=== PATIENT | male | born 1980 | race Caucasian/White ===

== ENCOUNTER → 2018-01-03 | Outpatient (CLI) | payer BC, OTHER ==
[2018-01-03 14:55] LABS: HEMATOCRIT 49.8 % (42.0-52.0); HEMOGLOBIN 17.3 g/dl (14.0-18.0); MEAN CORPUSCULAR HEMOGLOBIN 30.8 pg (27.0-33.0); MEAN CORPUSCULAR HGB CONC 34.7 g/dl (32.0-36.5); MEAN CORPUSCULAR VOLUME 88.8 fl (80.0-96.0); PLATELET COUNT, AUTOMATED 206 10^3/uL (150-450); RED BLOOD COUNT 5.61 10^6/uL (4.30-6.10); RED CELL DISTRIBUTION WIDTH 11.9 % (11.5-14.5); WHITE BLOOD COUNT 4.5 10^3/uL (4.0-10.0)
[2018-01-03 15:26] LABS: TOTAL 25(OH) VITAMIN D 26.6 NG/ML (30.0-100.0)
[2018-01-03 15:30] LABS: ALBUMIN 4.7 GM/DL (3.2-5.2); ALBUMIN/GLOBULIN RATIO 1.31 (1.00-1.93); ALKALINE PHOSPHATASE 137 U/L (45-117); ALT/SGPT 38 U/L (12-78); ANION GAP 5 MEQ/L (8-16); AST/SGOT 32 U/L (7-37); BILIRUBIN,TOTAL 0.8 MG/DL (0.2-1.0); BLOOD UREA NITROGEN 22 MG/DL (7-18); CALCIUM LEVEL 9.3 MG/DL (8.5-10.1); CARBON DIOXIDE LEVEL 30 MEQ/L (21-32); CHLORIDE LEVEL 106 MEQ/L (98-107); CHOLESTEROL LEVEL 148 MG/DL (<200); CHOLESTEROL RISK RATIO 4.484 (<5); CREATININE FOR GFR 0.77 MG/DL (0.70-1.30); FREE T4 0.86 NG/DL (0.76-1.46); GLOMERULAR FILTRATION RATE > 60.0 (>60); GLUCOSE, FASTING 75 MG/DL (70-100); HDL CHOLESTEROL 33 MG/DL (>40); LDL CHOLESTEROL 94.2 MG/DL (<100); NON-HDL-C 115 MG/DL; POTASSIUM SERUM 4.5 MEQ/L (3.5-5.1); SODIUM LEVEL 141 MEQ/L (136-145); TOTAL PROTEIN 8.3 GM/DL (6.4-8.2); TRIGLYCERIDES LEVEL 104 MG/DL (<150)
== END ==
LOC: M LAB 14:24
DX: G80.1 Spastic diplegic cerebral palsy (principal); E55.9 Vitamin D deficiency, unspecified; Z13.220 Encounter for screening for lipoid disorders
CPT/HCPCS: 84443

== ENCOUNTER → 2018-11-21 | Outpatient (CLI) | payer BC, OTHER ==
[2018-11-21 15:48] LABS: BASO % 0.6 % (0.0-1.0); EOS # 0.1 10^3/uL (0.0-0.50); HEMATOCRIT 47.5 % (42.0-52.0); HEMOGLOBIN 16.7 g/dl (13.5-17.5); LYMPH # 1.3 10^3/uL (1.5-4.5); LYMPH % 35.5 % (24.0-44.0); MEAN CORPUSCULAR HEMOGLOBIN 31.2 pg (27.0-33.0); MEAN CORPUSCULAR HGB CONC 35.2 g/dl (32.0-36.5); MEAN CORPUSCULAR VOLUME 88.8 fl (80.0-96.0); MONO # 0.5 10^3/uL (0.0-0.8); MONO % 12.7 % (0.0-5.0); NEUTROPHILS # 1.8 10^3/uL (1.8-7.7); NEUTROPHILS % 48.2 % (36.0-66.0); PLATELET COUNT, AUTOMATED 209 10^3/uL (150-450); RED BLOOD COUNT 5.35 10^6/uL (4.30-6.10); WHITE BLOOD COUNT 3.6 10^3/uL (4.0-10.0)
[2018-11-21 15:59] LABS: APPEARANCE, URINE HAZY (CLEAR); BACTERIA, URINE AUTO NEGATIVE (NEGATIVE); BILIRUBIN, URINE AUTO NEGATIVE (NEGATIVE); BLOOD, URINE BLOOD NEGATIVE (NEGATIVE); COLOR, URINE AMBER (YELLOW); GLUCOSE, URINE (UA) AUTO NEGATIVE (NEGATIVE); KETONE, URINE AUTO NEGATIVE (NEGATIVE); LEUKOCYTE ESTERASE, URINE AUTO NEGATIVE (NEGATIVE); MUCUS, URINE SMALL (NEGATIVE); NITRITE, URINE AUTO NEGATIVE (NEGATIVE); PROTEIN, URINE AUTO NEGATIVE (NEGATIVE); RBC, URINE AUTO 0 /HPF (0-3); SPECIFIC GRAVITY URINE AUTO 1.028 (1.002-1.035); SQUAMOUS EPITHELIAL CELL UR AU 0 /HPF (0-6); UROBILINOGEN, URINE AUTO 0.2 mg/dL (0.0-2.0); WBC, URINE AUTO 1 /HPF (0-3)
[2018-11-21 16:03] LABS: ALBUMIN 4.4 GM/DL (3.2-5.2); ALT/SGPT 40 U/L (12-78); BILIRUBIN,DIRECT 0.2 MG/DL (0.0-0.2); BILIRUBIN,TOTAL 0.7 MG/DL (0.2-1.0); BLOOD UREA NITROGEN 24 MG/DL (7-18); CALCIUM LEVEL 9.2 MG/DL (8.5-10.1); CARBON DIOXIDE LEVEL 31 MEQ/L (21-32); CHLORIDE LEVEL 103 MEQ/L (98-107); CREATININE FOR GFR 0.78 MG/DL (0.70-1.30); GLOMERULAR FILTRATION RATE > 60.0 (>60); GLUCOSE, FASTING 70 MG/DL (70-100); POTASSIUM SERUM 4.3 MEQ/L (3.5-5.1); SODIUM LEVEL 140 MEQ/L (136-145); TOTAL PROTEIN 7.5 GM/DL (6.4-8.2)
[2018-11-21 16:19] LABS: ERYTHROCYTE SEDIMENTATION RATE 2 mm/hr (0-15)
[2018-11-23 18:42] LABS: ANTI DOUBLE STRAND-DNA AB <1 IU/mL (0-9); ANTINUCLEAR ANTIBODIES DIRECT Negative (Negative); RNP ANTIBODIES <0.2 AI (0.0-0.9); SMITH ANTIBODIES <0.2 AI (0.0-0.9)
[2018-11-24 00:07] LABS: G6PD2 5.29 x10E6/uL (4.14-5.80); G6PD3 274 (146-376)
== END ==
LOC: M LAB 14:59
PROVIDERS: ATTEND Physician Assistant Medical
DX: L93.1 Subacute cutaneous lupus erythematosus (principal)

== ENCOUNTER 2019-02-08 11:47 | Day surgery (SDC) | payer BC, OTHER ==
[~2019-02-08] VITALS: Ht 162.6 cm; Wt 56.8 kg
[2019-02-08] MEDS ORDERED: NS 1,000 ML IV ONE (12:45)
[2019-02-08] MEDS ORDERED: KETOROLAC 30 MG/ML VIAL (J1885) IV ONE (12:45)
[2019-02-08] MEDS ORDERED: PANTOPRAZOLE 40MG INJ (PROTONIX) (C9113) IV ONE (12:45)
[2019-02-08] MEDS ORDERED: ONDANSETRON 4MG/2ML VIAL (J2405) IV ONE (12:45)
[2019-02-08 13:26] LABS: BASO % 0.2 % (0.0-1.0); EOS % 0.2 % (0.0-3.0); LYMPH # 0.8 10^3/uL (1.5-4.5); LYMPH % 6.5 % (24.0-44.0); MEAN CORPUSCULAR HGB CONC 34.7 g/dl (32.0-36.5); MEAN CORPUSCULAR VOLUME 89.3 fl (80.0-96.0); MONO # 0.6 10^3/uL (0.0-0.8); NEUTROPHILS # 10.6 10^3/uL (1.8-7.7); NEUTROPHILS % 87.8 % (36.0-66.0); PLATELET COUNT, AUTOMATED 223 10^3/uL (150-450); RED BLOOD COUNT 5.49 10^6/uL (4.30-6.10); WHITE BLOOD COUNT 12.1 10^3/uL (4.0-10.0)
--- NOTE | 2019-02-08 13:43 | REP ---
ABDOMINAL SERIES: Supine and erect views of the abdomen are performed and demonstrate no evidence of free intraperitoneal air and no evidence of small bowel obstruction. Two calcific densities in the right pelvis probably represent phleboliths. The visualized osseous structures are unremarkable. IMPRESSION: An accompanying view of the chest demonstrates no acute infiltrate. The heart is normal in size and mediastinal silhouette is unremarkable. IMPRESSION: Negative abdominal series. Electronically Signed by Damir Price MD 02/09/2019 12:19 P
[2019-02-08 13:51] LABS: ALBUMIN 4.6 GM/DL (3.2-5.2); ALT/SGPT 43 U/L (12-78); AMYLASE 36 U/L (25-115); BILIRUBIN,DIRECT < 0.1 MG/DL (0.0-0.2); BILIRUBIN,TOTAL 0.9 MG/DL (0.2-1.0); BLOOD UREA NITROGEN 24 MG/DL (7-18); CALCIUM LEVEL 9.2 MG/DL (8.5-10.1); CARBON DIOXIDE LEVEL 29 MEQ/L (21-32); CHLORIDE LEVEL 106 MEQ/L (98-107); CREATININE FOR GFR 0.97 MG/DL (0.70-1.30); GLOMERULAR FILTRATION RATE > 60.0 (>60); GLUCOSE, FASTING 117 MG/DL (70-100); LIPASE 80 U/L (73-393); SODIUM LEVEL 138 MEQ/L (136-145); TOTAL PROTEIN 8.3 GM/DL (6.4-8.2)
--- NOTE | 2019-02-08 15:02 | REP ---
CT ABDOMEN AND PELVIS WITHOUT CONTRAST: CT abdomen and pelvis is performed without oral or IV contrast. Sagittal and coronal reconstruction images are performed. Visualized lung bases are clear. There is a small hiatal hernia. The liver, spleen, adrenals, pancreas, and kidneys are grossly unremarkable. There is no renal or ureteral calculus and no evidence of hydroureteronephrosis. There is no abdominal aortic aneurysm. I see no adenopathy. There is no free air or free fluid. Posterior to the cecum there is inflammatory change and there appears to be an inflamed appendix consistent with appendicitis. There is no other evidence of bowel wall thickening. Urinary bladder is mildly distended and grossly unremarkable. IMPRESSION: Findings compatible with appendicitis in the retrocecal region. No free air or free fluid. Small hiatal hernia. Electronically Signed by Damir Price MD 02/09/2019 12:22 P
[2019-02-08] MEDS ORDERED: KETOROLAC 30 MG/ML VIAL (J1885) IV PRN (15:30)
[2019-02-08] MEDS ORDERED: ONDANSETRON 4MG/2ML VIAL (J2405) IV PRN ×2 (15:30→20:45)
[2019-02-08] MEDS ORDERED: ACETAMINOPHEN TAB 650MG DOSE (2X325MG) PO PRN (15:30)
[2019-02-08] MEDS ORDERED: MORPHINE 4 MG/ML 1ML VIAL/SYRINGE (J2270) IV PRN (15:30)
[2019-02-08] MEDS ORDERED: NORCO, ANEXSIA 5/325MG TABLET (HYDROcodone/ACETAMINOPHEN) PO PRN (15:30)
[2019-02-08] MEDS ORDERED: BUPIVACAINE/EPIN 0.25% 30 ML VIAL As Ordered ONE (15:36)
[2019-02-08] MEDS ORDERED: PIPERACILLIN/TAZOBACTAM SOD 3.375 GM in D5W MINI-BAG PLUS 50 ML IV SCH (16:00)
[2019-02-08] MEDS ORDERED: ZOSYN 3.375 GM VIAL (J2543) As Ordered ONE (19:48)
[2019-02-08] MEDS ORDERED: LIDOCAINE 2% INJ 100 MG/5 ML SDV (FOR ANES.) As Ordered ONE (19:57)
[2019-02-08] MEDS ORDERED: MIDAZOLAM INJ 2 MG/2 ML VIAL (J2250) As Ordered ONE (19:57)
[2019-02-08] MEDS ORDERED: ROCURONIUM BROMIDE 50 MG/5 ML VIAL As Ordered ONE (19:57)
[2019-02-08] MEDS ORDERED: fentaNYL 100 MCG/2 ML INJECTION (J3010) As Ordered ONE (19:57)
[2019-02-08] MEDS ORDERED: PHENYLephrine HCL 500 MCG/5 ML (100MCG/ML) SYRINGE (J2370) As Ordered ONE (19:57)
[2019-02-08] MEDS ORDERED: PROPOFOL 200 MG/20 ML VIAL As Ordered ONE (19:57)
[2019-02-08] MEDS ORDERED: dexameTHASONE 4 MG/ML 1ML VIAL (J1100) As Ordered ONE (20:02)
[2019-02-08] MEDS ORDERED: ONDANSETRON 4MG/2ML VIAL (J2405) As Ordered ONE (20:02)
[2019-02-08] MEDS ORDERED: KETOROLAC 60 MG/2 ML VIAL (J1885) As Ordered ONE (20:14)
[2019-02-08] MEDS ORDERED: SUGAMMADEX SODIUM 500 MG/5 ML VIAL (BRIDION) As Ordered ONE (20:17)
[2019-02-08] MEDS ORDERED: fentaNYL 100 MCG/2 ML INJECTION (J3010) IV PRN (20:45)
[2019-02-08] MEDS ORDERED: LR 1,000 ML IV SCH (20:45)
[2019-02-08] MEDS: KCL 20MEQ IN D5/0.45NS 1000ML 1,000 ML IV SCH (21:00)
[2019-02-08] MEDS ORDERED: SENOKOT S TAB PO SCH (21:00)
[2019-02-08 21:25] VITALS: BP 119/73
[2019-02-08 21:55] VITALS: BP 114/72
[2019-02-08 22:25] VITALS: BP 121/80
--- NOTE | 2019-02-08 22:26 | HPE ---
DATE OF ADMISSION: 02/08/2019 CHIEF COMPLAINT: Abdominal pain. HISTORY OF PRESENT ILLNESS: The patient is 38-year-old male presents with right lower quadrant abdominal pain started about 3 a.m. this morning. He came into the emergency room with persistent pains and was found to have acute appendicitis on CT. I was called to evaluate. Currently, he has no nausea or vomiting. No fevers or chills. Slight pain in the right lower quadrant. No problems with urination or bowel movements. No recent travel or trauma. No recent illnesses. PAST MEDICAL HISTORY: Traumatic brain injury. PAST SURGICAL HISTORY: Left lower leg benign mass excision. ALLERGIES: None. HOME MEDICATIONS: None. SOCIAL HISTORY: Denies drug, alcohol, tobacco abuse. FAMILY HISTORY: Noncontributory. REVIEW OF SYSTEMS: Pertinent positives and negatives as in history of present illness. PHYSICAL EXAMINATION: General: Alert and oriented x3. No acute stress. Vitals: Temperature 96.2, pulse 82, respirations 16, blood pressure 118/76, pulse oximetry 98% room air. HEENT: Pupils equally round and react to accommodation. Heart: S1-S2 regular rate and rhythm. Lungs: Clear auscultation bilaterally. Abdomen: Soft, tender to palpation right lower quadrant. Localized guarding. No rebounding or rigidity. Extremities: No clubbing, cyanosis or edema. LABORATORY DATA: White count 12.1, hemoglobin 17, platelets 223, potassium 5. IMAGING STUDIES: CT abdomen and pelvis shows inflammatory changes posterior to the cecum with an inflamed appendix consistent with appendicitis. ASSESSMENT/PLAN: The patient is a 38-year-old male with acute appendicitis. RECOMMENDATIONS: Proceed laparoscopic possible open appendectomy. Risks and benefits of procedure not limited but including bleeding, infection, hernia formation, damage to surrounding structure, need for further surgery, was discussed in detail with him and his father. Postoperatively, he will be kept overnight and likely be discharged first thing in the morning.
[2019-02-08 23:25] VITALS: BP 134/88
[2019-02-09 00:25] VITALS: BP 128/78
[2019-02-09] MEDS: PIPERACILLIN/TAZOBACTAM SOD 3.375 GM in D5W MINI-BAG PLUS 50 ML IV SCH ×2 (01:23→08:00)
[2019-02-09 01:25] VITALS: BP 119/67
[2019-02-09 04:00] VITALS: BP 119/66
[2019-02-09] MEDS: KCL 20MEQ IN D5/0.45NS 1000ML 1,000 ML IV SCH (06:42)
[2019-02-09 07:31] LABS: HEMATOCRIT 43.4 % (42.0-52.0); MEAN CORPUSCULAR HEMOGLOBIN 30.8 pg (27.0-33.0); MEAN CORPUSCULAR HGB CONC 34.3 g/dl (32.0-36.5); MEAN CORPUSCULAR VOLUME 89.9 fl (80.0-96.0); PLATELET COUNT, AUTOMATED 202 10^3/uL (150-450); RED BLOOD COUNT 4.83 10^6/uL (4.30-6.10); WHITE BLOOD COUNT 5.9 10^3/uL (4.0-10.0)
[2019-02-09 07:48] LABS: HEMOGLOBIN 14.9 g/dl (13.5-17.5)
[2019-02-09] MEDS ORDERED: HYDR-4571 PO (07:51)
[2019-02-09 08:00] VITALS: BP 129/85
--- NOTE | 2019-02-09 08:08 | RO ---
DATE OF PROCEDURE: 02/08/2019 PREOPERATIVE DIAGNOSIS: Acute appendicitis. POSTOPERATIVE DIAGNOSIS: Acute appendicitis. PROCEDURE: Laparoscopic appendectomy. SURGEON: Dr. Damir Weaver. [employer] COACH: None. ANESTHESIA: General. ESTIMATED BLOOD LOSS: 5. COMPLICATIONS: None. INDICATIONS FOR PROCEDURE: The patient is a 38-year-old male with acute appendicitis. Recommendation to proceed with laparoscopic possible open appendectomy. Risks and benefits of the procedure not limited to but including bleeding, infection, hernia formation, damage to surrounding structures, need for further surgery were discussed in detail with the patient. Informed consent was obtained and procedure planned and procedure. The patient brought back to operating room eight. After sufficient sedation, the abdomen was sterilely prepped and draped. Next time-out was done to confirm proper patient and proper procedure. Following that, a 5 mm incision was made in left upper quadrant. Veress needle was inserted and the abdomen was inflated to 15 mmHg. Next the Veress needle was removed. A 5 mm OptiView port was used to gain access to the abdomen. Once the abdomen was entered, an 8 mm port placed supraumbilically in the midline, another 5 mm port suprapubically in the midline. The cecum was then identified, elevated superiorly. The terminal ileum was retracted medially identifying a posterior appendix. This was gently elevated. The mesoappendix was dissected free using the Enseal until the base of the appendix was reached. Once the base was reached, it was ligated with two PDS Endoloops then the appendix was amputated using the Enseal. Appendix was then placed inside of an 8 mm EndoCatch bag and brought out through the supraumbilical midline port site without the need to stress the fascia. Once the appendix was removed, the abdomen was examined to confirm hemostasis, the abdomen was then desufflated. Skin incisions closed with #4-0 Vicryl subcuticular sutures. The eye was cleaned and dried with Steri-Strips. 4x4 and tape were applied thus ending procedure.
--- NOTE | 2019-02-11 15:09 | DSES ---
DATE OF ADMISSION: 02/08/2019 DATE OF DISCHARGE: 02/09/2019 ADMISSION DIAGNOSIS: Acute appendicitis. DISCHARGE DIAGNOSIS: Acute appendicitis. HOSPITAL COURSE: The patient is a 38-year-old male. He was admitted on 02/08/2019 with an acute appendicitis. He was brought to the operating room in the evening for laparoscopic appendectomy. Postoperatively he was doing well. In the morning he had slight nausea. No emesis. No pain. He was ambulating without any difficulty. He had not had anything to eat yet. However, his labs were all normal. After tolerating a diet and ambulating in the halls, he felt well and was discharged home. All of his questions were answered. He can lift up to 20 pounds for 2 weeks. No baths for 5 days. He is okay to shower and if he has any questions he can call my office.
== END 2019-02-09 09:27 | disposition home or self-care (01) ==
LOC: M ED 11:47 → M SDC 15:28 → M PED 21:29 → M SDC 02-09 09:27
PROVIDERS: ATTEND Surgery
DX: K35.890 Other acute appendicitis without perforation or gangrene (principal); G80.9 Cerebral palsy, unspecified; Z87.820 Personal history of traumatic brain injury
CPT/HCPCS: 36415; 44970; 74021; 74176; 80048; 80076; 81001; 82150; 83690; 85025; 85027; 88302; 96361; 96374; 96375; 99284; C9113; J1100; J1885; J2250; J2370; J2405; J2543; J3010